=== PATIENT | male | born 1970 | race Caucasian/White ===

== ENCOUNTER 2019-05-12 10:15 | Emergency (ER) | payer OTHER ==
[~2019-05-12] VITALS: Ht 177.8 cm; Wt 68.0 kg
[2019-05-12 10:15] VITALS: BP_SYST 121
--- NOTE | 2019-05-12 10:15 | NUR ---
ASSISTED OUT OF CAR, PLACED IN BED #7 AND TRIAGED. REPORT GIVEN TO KASSANDRA
--- NOTE | 2019-05-12 10:32 | NUR ---
Dr. Marie at bedside for examination.
--- NOTE | 2019-05-12 10:32 | NUR ---
Patient c/o of flank pain and abdominal pain 01/31. Patient also complaints of vomitting blood and blood in the stool. 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 Patient does not state use of recreational drugs at this time. Patient reported to be diagnosed with kindey stones and was discharged in [facility] x 3 days ago. Safety precautions enforced.
[2019-05-12] MEDS ORDERED: NACL 0.9% 1,000 ML IV ONE (10:33)
[2019-05-12] MEDS ORDERED: ONDANSETRON HCL 4 MG/2 ML VIAL IVP ONE (10:45)
[2019-05-12] MEDS ORDERED: KETOROLAC TROMETHAMINE 30 MG VIAL IVP ONE (10:45)
--- NOTE | 2019-05-12 11:08 | NUR ---
Patient taken to radiology.
[2019-05-12 11:09] LABS: BASOPHILS % (AUTO) 0.6 % (0.0-2.0); EOSINOPHILS % (AUTO) 0.1 % (0.0-4.0); HEMATOCRIT 40.8 % (36-54); HEMOGLOBIN 13.8 g/dL (14.0-18.0); LYMPHOCYTES # (AUTO) 1.5 K/uL (1.0-5.5); LYMPHOCYTES % (AUTO) 20.5 % (20.5-51.5); MEAN CORPUSCULAR HEMOGLOBIN 29 pg (27-31); MEAN CORPUSCULAR HGB CONC 34 % (32-36); MEAN CORPUSCULAR VOLUME 84 fL (79.0-98.0); MONOCYTES # (AUTO) 0.3 K/uL (0.0-1.0); MONOCYTES % (AUTO) 3.7 % (1.7-9.3); NEUTROPHILS # (AUTO) 5.7 K/uL (1.8-7.7); NEUTROPHILS % (AUTO) 75.1 % (40.0-70.0); PLATELET COUNT (AUTO) 280 K/uL (130-430); RED BLOOD CELL COUNT(AUTO) 4.85 MIL/uL (4.2-6.2); RED CELL DISTRIBUTION WIDTH 14.5 % (9.0-15.0); WHITE BLOOD COUNT (AUTO) 7.5 K/uL (4.8-10.8)
[2019-05-12 12:02] LABS: BILIRUBIN,URINE 1+ (NEGATIVE); BLOOD, URINE 3+ (NEGATIVE); CLARITY/URINE TURBID (CLEAR); GLUCOSE,URINE NEGATIVE (NEGATIVE); KETONES,URINE 1+ (NEGATIVE); LEUKOCYTE ESTERASE ,URINE TRACE (NEGATIVE); NITRITE, URINE NEGATIVE (NEGATIVE); PROTEIN URINE 2+ (NEGATIVE)
[2019-05-12 12:06] LABS: COLOR,URINE AMBER (YELLOW)
[2019-05-12 12:11] LABS: BACTERIA,URINE MODERATE /HPF (None Seen); MUCUS,URINE 1+ /LPF (None Seen); RBC,URINE >100 /HPF (0-3)
[2019-05-12 12:20] LABS: BARBITURATE, URINE NEGATIVE (NEG <=200); BENZODIAZEPINE, URINE NEGATIVE (NEG <=150); CANNABINOID, URINE NEGATIVE (NEG <=50); COCAINE, URINE NEGATIVE (NEG <=150); METHAMPHETAMINES SCREEN,URINE NEGATIVE (NEG <=500); PHENCYCLIDINE SCREEN,URINE NEGATIVE (NEG <=25); URINE METHADONE NEGATIVE (NEG <=200)
[2019-05-12 12:21] LABS: OPIATE, URINE NEGATIVE (NEG <=100); UR TRICYCLIC ANTIDEPRESSANTS NEGATIVE (NEG <=300); URINE OXYCODONE SCREEN NEGATIVE (NEG <=100); URINE PROPOXYPHENE SCREEN NEGATIVE (NEG <=300)
[2019-05-12 12:22] LABS: URINE AMPHETAMINE POSITIVE (NEG <=500)
[2019-05-12 12:25] LABS: ANION GAP 10 (5-15); CALCIUM 7.9 mg/dL (8.4-11.0); CHLORIDE 105 mmol/L (98-107); CREATININE 0.79 mg/dL (0.55-1.30); GLUCOSE 118 mg/dL (70-99); POTASSIUM 3.3 mmol/L (3.5-5.1); SODIUM SERUM 139 mmol/L (136-145); UREA NITROGEN, BLOOD 11 mg/dL (8-21)
[2019-05-12 12:26] LABS: GFR AFRICAN AMERICAN 135 mL/min (>90)
[2019-05-12 12:28] LABS: PROTHROMBIN TIME 10.4 SECS (9.5-12.5)
[2019-05-12 12:31] LABS: ALANINE AMINOTRANSFERASE 31 U/L (12-78); ALBUMIN 3.5 g/dL (3.4-4.8); ASPARTATE AMINOTRANSFERASE 22 U/L (10-37); LIPASE 61 U/L (73-393); TOTAL BILIRUBIN 0.9 mg/dL (0.0-1.0)
[2019-05-12 12:32] LABS: ACETAMINOPHEN < 1 ug/mL (1-30); ALCOHOL, BLOOD < 3 mg/dL (<10)
--- NOTE | 2019-05-12 13:24 | NUR ---
Patient irritable at this time with relative at bedside. Patient in no signs of distress. Patient not actively vomitting at this time.
--- NOTE | 2019-05-12 15:31 | NUR ---
SPOKE WITH JOSS ABOUT COMING TO [facility] PT.
[2019-05-12 15:38] VITALS: BP_SYST 130
--- NOTE | 2019-05-12 15:38 | NUR ---
Patient given written and verbal discharge instructions and verbalizes understanding. ER MD discussed with patient the results and treatment provided. Patient in stable condition. ID arm band removed. IV catheter removed intact and dressing applied, no active bleeding. Patient educated on pain management and to follow up with PMD. Pain Scale 3/10. Opportunity for questions provided and answered. Medication side effect fact sheet provided.
== END 2019-05-12 15:38 | disposition home or self-care (01) ==
LOC: SED 10:15
DX: N20.0 Calculus of kidney (principal); K92.0 Hematemesis
CPT/HCPCS: 36415; 71045; 74176; 80053; 80307; 81000; 83605; 83690; 84484; 85025; 85610; 85730; 87040; 87086; 93005; 96361; 96374; 96375; 99284; G0480; G0481; G0482; J1885; J2405; J7030